=== PATIENT | male | born 1950 | race Caucasian/White ===

== ENCOUNTER 2018-02-24 11:25 | Emergency (ER) | payer MEDICARE, OTHER ==
[2018-02-24] MEDS ORDERED: Diphtheria,Pertussis(Acell),Tetanus Vaccine 0.5 ML Syringe IM ONE (12:10)
[2018-02-24] MEDS ORDERED: Sodium Chloride 0.9% 500 ML IV SCH (12:15)
[2018-02-24 12:27] LABS: CHLORIDE,CL 102 mEq/L (98-106); SODIUM,NA 138 mEq/L (136-145)
[2018-02-24] MEDS ORDERED: Iopamidol 612 MG/ML 100 ML Bottle IVPUSH ONE (12:46)
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
== END 2018-02-24 12:55 ==
LOC: CC.ED 11:25
DX: S22.039A Unspecified fracture of third thoracic vertebra, initial encounter for closed fracture (principal); S12.591A Other nondisplaced fracture of sixth cervical vertebra, initial encounter for closed fracture; S20.212A Contusion of left front wall of thorax, initial encounter; S30.1XXA Contusion of abdominal wall, initial encounter; S01.01XA Laceration without foreign body of scalp, initial encounter; S09.90XA Unspecified injury of head, initial encounter; S60.512A Abrasion of left hand, initial encounter; V67.5XXA Driver of heavy transport vehicle injured in collision with fixed or stationary object in traffic accident, initial encounter
CPT/HCPCS: 36415; 70450; 71260; 72125; 74177; 80053; 82150; 85025; 85610; 90471; 90715; 96360; 99285; J7040; Q9967